=== PATIENT | male | born 1935 | race Caucasian/White ===

== ENCOUNTER 2020-09-17 05:47 | Day surgery (SDC) | payer MEDICARE, BC ==
[2020-09-17] MEDS ORDERED: Midazolam 1 MG/ML 2 ML SDV IV ONE ×3 (05:48→07:47)
[2020-09-17] MEDS ORDERED: fentaNYL 100 MCG/2 ML SDV IV ONE ×4 (05:48→07:48)
[2020-09-17] MEDS ORDERED: Midazolam 1 MG/ML 2 ML SDV ONE (06:35)
[2020-09-17] MEDS ORDERED: fentaNYL 100 MCG/2 ML SDV ONE (06:35)
[2020-09-17] MEDS ORDERED: Dextrose 5%-0.45% NaCl 1,000 ML IV SCH (07:10)
--- NOTE | 2020-09-17 09:57 | OR ---
DATE: 09/17/2020 PROCEDURE: Esophagogastroduodenoscopy, NBI, and multiple pinch biopsies. INSTRUMENT USED: GIF-HQ190 Olympus video panendoscope. PREMEDICATIONS: No oral or topical anesthesia used. Fentanyl 100 mcg intravenous, Versed 1.5 mg intravenous. Nasal O2 cannula. The procedure was done under pulse oximetry, BP recording, and panel monitor. INDICATION: The patient with longstanding heartburn, on acid suppressants, with heartburn and also chronic diarrhea. Esophagogastroduodenoscopy is performed for detection of any active erosive lesions, Ferreira esophagus and/or malignancy also under consideration, H pylori status to be determined, small bowel biopsies to be obtained for any evidence of celiac disease, endoscopic hemostasis therapy if needed. The scope was passed with ease. Adequate visualization of the esophagus was made from proximal to distal areas. No upper esophageal lesions identified. No distal esophageal stricture. No uphill or downhill esophageal varices. No Stephany-Mcghee tear. Grade D erosive changes by [place] criteria were noted. The Z-line was seen at around 39 cm distal to the oral verge. No esophageal polyp or tumor mass identified. No proximal gastric varices noted. Gastric fundus examination by retroflexion showed no polypoid lesions. No gastric ulcer, malignant mass, or vascular ectasia identified. Few gastric antral erosions were noted without bleeding from them. Duodenal bulb showed patchy erythema. Visualized second part of the duodenum was unremarkable. Multiple pinch biopsies, 4 in number, were taken from different areas of the second part of the duodenum and tissues were also obtained from the duodenal bulb at 9 and 12 o'clock positions and sent for any histopathologic evidence of celiac disease. Multiple pinch biopsies were also obtained from the gastric antrum and proximal body and sent for PyloriTek test for H pylori and histopathology. NBI views were obtained of the distal esophagus. No bleeding was noted from any of the visualized areas at the completion of examination. Photographs were taken of the duodenal bulb, gastric antrum, fundus, and distal esophagus. IMPRESSION: 1. Grade D gastroesophageal reflux disease. 2. Gastric antral erosions. 3. The patient tolerated the procedure well. [facility] /[id number]
--- NOTE | 2020-09-18 11:57 | LETTER ---
09/17/2020 RE: DANIELLE MEDEROS : 1935 [place] [address] Sorto: Mr. Danielle Mederos had esophagogastroduodenoscopy done this morning, and he tolerated the procedure well. I herewith send a copy of the endoscopy note and photographs for your review. Thank you. Sincerely, [facility] /[id number]
== END 2020-09-17 10:05 | disposition home or self-care (01) ==
LOC: DL.ENDO 05:47
PROVIDERS: ATTEND Internal Medicine Gastroenterology
DX: K29.80 Duodenitis without bleeding (principal); I78.1 Nevus, non-neoplastic; K31.89 Other diseases of stomach and duodenum; D72.820 Lymphocytosis (symptomatic); K26.9 Duodenal ulcer, unspecified as acute or chronic, without hemorrhage or perforation; K21.9 Gastro-esophageal reflux disease without esophagitis; K25.9 Gastric ulcer, unspecified as acute or chronic, without hemorrhage or perforation; I25.10 Atherosclerotic heart disease of native coronary artery without angina pectoris; K80.20 Calculus of gallbladder without cholecystitis without obstruction; Z86.010 Personal history of colon polyps; Z88.8 Allergy status to other drugs, medicaments and biological substances; Z95.1 Presence of aortocoronary bypass graft; Z98.890 Other specified postprocedural states
CPT/HCPCS: 87077; 88305; J2250; J3010; J7042

== ENCOUNTER 2020-09-23 04:53 | Day surgery (SDC) | payer MEDICARE, BC ==
[2020-09-23] MEDS ORDERED: fentaNYL 100 MCG/2 ML SDV ONE (05:59)
[2020-09-23] MEDS ORDERED: Midazolam 1 MG/ML 2 ML SDV ONE (05:59)
[2020-09-23] MEDS ORDERED: fentaNYL 100 MCG/2 ML SDV IV ONE ×2 (06:35→06:36)
[2020-09-23] MEDS ORDERED: Midazolam 1 MG/ML 2 ML SDV IV ONE ×5 (06:36→06:52)
--- NOTE | 2020-09-23 07:39 | OR ---
DATE: 09/23/2020 PROCEDURE: Total colonoscopy, terminal ileoscopy, NBI, and multiple pinch biopsies. INSTRUMENT USED: PCF-H190DL Olympus video colonoscope. PREMEDICATIONS: Fentanyl 100 mcg intravenous, Versed 3.5 mg intravenous. Nasal O2 cannula. The procedure was done under pulse oximetry, BP recording, and secured entrance monitor. INDICATION: The patient with chronic diarrhea, unexplained and not responsive to medical measures. Colonoscopic examination is done for detection of any polypoid lesions and removal, endoscopic hemostasis therapy if needed. DESCRIPTION OF PROCEDURE: Initial rectal exam showed external hemorrhoidal tags. Rigid anoscopy showed small internal hemorrhoids without bleeding from them. The colonoscope was passed with ease. Numerous scattered diverticula were noted, more so in the distal left colon along with deformity. The scope was passed with ease up to and beyond the ileocecal junction to visualize the normal-appearing terminal ileum, NBI views were obtained, photographs were taken, multiple pinch biopsies were obtained and sent for histopathology. No bleeding was noted from any of the visualized areas at the commencement of the examination. The bowel preparation was found to be adequate, Nottingham scale 3 in the right and transverse colon, 2 in the left colon, total score 8. Photographs were taken of the normal-appearing cecum. No stricture. No vascular ectasia. No large isolated ulcerations seen. No evidence of diffuse inflammatory bowel disease in the form of friability, contact bleeding, or ulcerations. No polyp or tumor mass identified. Probing the proximal sides of folds and flexures using adequate distention and clearing up the stool material, withdrawal of the scope was made. Multiple pinch biopsies were obtained from the normal-appearing mucosa of the mid transverse colon, mid descending colon, and rectosigmoid, and sent for any evidence of microscopic colitis. No bleeding was noted from any of the visualized areas at the completion of examination. IMPRESSION: 1. External and internal hemorrhoids. 2. Diverticulosis. The patient tolerated the procedure well. [facility] /[id number]
[2020-09-23] MEDS ORDERED: Dextrose 5%-0.45% NaCl 1,000 ML IV SCH (08:00)
[2020-09-23] MEDS ORDERED: Sodium Chloride 0.9% 10 ML Syringe FLUSH PRN (08:00)
--- NOTE | 2020-09-23 10:24 | LETTER ---
09/23/2020 RE: DANIELLE MEDEROS : 1935 Spring Sorto MD [address] [place] [address] Sorto: Mr. Danielle Mederos had colonoscopic examination done this morning and he tolerated the procedure well. I herewith send a copy of the endoscopy note and photographs for your review. Thank you. Sincerely, [facility] /[id number]
== END 2020-09-23 09:10 | disposition home or self-care (01) ==
LOC: DL.ENDO 04:53
PROVIDERS: ATTEND Internal Medicine Gastroenterology
DX: K52.9 Noninfective gastroenteritis and colitis, unspecified (principal); K57.30 Diverticulosis of large intestine without perforation or abscess without bleeding; K64.4 Residual hemorrhoidal skin tags; K64.8 Other hemorrhoids; D72.820 Lymphocytosis (symptomatic); Z88.8 Allergy status to other drugs, medicaments and biological substances; I25.10 Atherosclerotic heart disease of native coronary artery without angina pectoris; Z98.890 Other specified postprocedural states; Z86.010 Personal history of colon polyps; K80.20 Calculus of gallbladder without cholecystitis without obstruction
CPT/HCPCS: 45380; 88305; J2250; J3010; J7042

== ENCOUNTER 2020-12-02 05:52 | Day surgery (SDC) | payer MEDICARE, BC ==
[~2020-12-02 05:52] MED LIST: Dextrose 5%-0.45% NaCl 1,000 ML IV SCH; Midazolam 1 MG/ML 2 ML SDV ONE; Sodium Chloride 0.9% 10 ML Syringe FLUSH PRN; fentaNYL 100 MCG/2 ML SDV ONE
[2020-12-02] MEDS ORDERED: fentaNYL 100 MCG/2 ML SDV IV ONE ×4 (05:53→06:55)
[2020-12-02] MEDS ORDERED: Midazolam 1 MG/ML 2 ML SDV IV ONE ×3 (05:53→06:55)
--- NOTE | 2020-12-02 07:47 | OR ---
DATE: 12/02/2020 PROCEDURE: Esophagogastroduodenoscopy. INSTRUMENT USED: GIF-HQ190 Olympus video panendoscope. PREMEDICATIONS: No oral or topical anesthesia used. Fentanyl 100 mcg intravenous, Versed 1.5 mg intravenous. Nasal O2 cannula. The procedure was done under pulse oximetry, BP recording, and cardiac monitoring. INDICATION: The patient with previous grade D GERD, treated with PPI. Followup esophagogastroduodenoscopy is performed for detection of any active erosive lesions, Ferreira esophagus and/or malignancy also under consideration, endoscopic hemostasis therapy if needed. The scope was passed with ease. Adequate visualization of the esophagus was made from proximal to distal areas. No upper esophageal lesions identified. No distal esophageal stricture. No uphill or downhill esophageal varices. No Stephany-Mcghee tear. No evidence of erosive esophagitis by [place] criteria. No esophageal polyp or tumor mass identified. Z-line was seen at around 39 cm distal to the oral verge. No proximal gastric varices noted. Gastric fundus examination by retroflexion showed no polypoid lesions. No gastric ulcer, malignant mass, or vascular ectasia identified. Multiple areas of patchy erythema noted in the gastric antrum. Duodenal bulb showed no ulcer. Visualized second part of duodenum was unremarkable. No bleeding was noted from any of the visualized areas at the completion of the examination. Photographs were taken of the duodenal bulb, gastric antrum, fundus, and distal esophagus. IMPRESSION: Patchy antral gastritis. The patient tolerated the procedure well. [facility] /[id number]
--- NOTE | 2020-12-03 06:35 | LETTER ---
12/02/2020 MD Rosi Walsh SChase [address]. [place], [place] [address] RE: JOSÉ MIGUEL MEDEROS : [address] Spring Don: Mr. José Miguel Mederos had esophagogastroduodenoscopy done this morning and he tolerated the procedure well. I herewith send a copy of the endoscopy note and photographs for your review. Thank you. Sincerely, [facility] /[id number]
== END 2020-12-02 09:04 | disposition home or self-care (01) ==
LOC: DL.ENDO 05:52
PROVIDERS: ATTEND Internal Medicine Gastroenterology
DX: K29.60 Other gastritis without bleeding (principal); K21.9 Gastro-esophageal reflux disease without esophagitis
CPT/HCPCS: J2250; J3010; J7042